=== PATIENT | female | born 1995 ===

== ENCOUNTER 2024-04-01 10:03 | Emergency (ER) | payer SELFPAY ==
[2024-04-01 10:07] VITALS: BP 130/77
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
== END 2024-04-01 11:56 | disposition home or self-care (01) ==
LOC: EMR 10:03
PROVIDERS: EMERGENCY PHYSICIAN Emergency Medicine
DX: S09.90XA Unspecified injury of head, initial encounter (principal); X58.XXXA Exposure to other specified factors, initial encounter; Y99.0 Civilian activity done for income or pay; F84.0 Autistic disorder
CPT/HCPCS: 99282